=== PATIENT | male | born 1980 | race African-American/Black ===

== ENCOUNTER 2017-04-05 08:58 | Inpatient (IN) | payer BC ==
[~2017-04-05] VITALS: Ht 177.8 cm; Wt 79.9 kg
[2017-04-05 09:07] VITALS: Ht 177.8 cm; Wt 79.9 kg
[2017-04-05 10:13] LABS: BASOPHIL % 0.5 % (0-2)
[2017-04-05 10:30] LABS: PLATELET COUNT 118 x10^3mcL (130-400); RED CELL DISTRIBUTION WIDTH 15.1 % (11.5-14.5)
[2017-04-05 10:52] LABS: CALCIUM 8.6 mg/dL (8.5-10.1); CARBON DIOXIDE 31.8 mmol/L (21-32); CHLORIDE SERUM 104 mmol/L (98-107); CREATININE SERUM 0.9 mg/dL (0.7-1.3); GFR1 > 60 mL/min; GLUCOSE SERUM 104 mg/dL (74-106); SODIUM SERUM 141 mmol/L (136-145)
[2017-04-05 11:00] LABS: ALKALINE PHOSPHATASE 44 U/L (46-116); ALT/SGPT 32 U/L (16-63); AST/SGOT 27 U/L (15-37); CHOLESTEROL 159 mg/dL (<200); LIPASE 214 IU/L (73-393); TOTAL PROTEIN, SERUM 7.7 g/dL (6.4-8.2)
[2017-04-05 11:02] LABS: AMYLASE 140 U/L (25-115); HDL CHOLESTEROL 63 mg/dL (40-60)
[2017-04-05 11:59] LABS: microscopic required? NO
[2017-04-05 12:07] LABS: urine erythrocyte NEGATIVE (NEGATIVE)
[2017-04-05 12:27] LABS: AMPHETAMINE QUAL UR NONE DETECTED (NEG <=1000)
[2017-04-05 13:22] VITALS: BP 113/78
[2017-04-05 13:36] LABS: RED BLOOD CELLS 5.99 M/mm3 (4.52-5.90)
[2017-04-05 13:43] LABS: IRON 88 ug/dL (65-170); TOTAL IRON BINDING CAPACITY 327 ug/dL (250-450)
[2017-04-05 13:47] LABS: MAGNESIUM 2.1 mg/dL (1.8-2.4); T3 TOTAL 1.1 ng/mL
[2017-04-05 13:48] LABS: CHOLESTEROL/HDL RATIO 2.5
[2017-04-05 13:52] LABS: T4(THYROXINE) 8.9 ug/dL (4.7-13.3)
[2017-04-05 16:48] VITALS: BP 114/79
[2017-04-05 20:39] VITALS: BP 116/71
[2017-04-05 23:34] VITALS: BP 113/73
[2017-04-06 02:51] LABS: PLATELET COUNT 102 x10^3mcL (130-400); RED CELL DISTRIBUTION WIDTH 14.8 % (11.5-14.5)
[2017-04-06 02:52] LABS: CALCIUM 8.5 mg/dL (8.5-10.1); CARBON DIOXIDE 29.3 mmol/L (21-32); CHLORIDE SERUM 107 mmol/L (98-107); CREATININE SERUM 0.9 mg/dL (0.7-1.3); GFR1 > 60 mL/min; GLUCOSE SERUM 92 mg/dL (74-106); PHOSPHOROUS 3.5 mg/dL (2.5-4.9); SODIUM SERUM 142 mmol/L (136-145)
[2017-04-06 03:57] LABS: BAND NEUTROPHIL 4 % (0-10); MONOCYTE 10 % (0-7); SEGMENTED NEUTROPHILS 25 % (37-75); rbc morphology (normal/abnorm) NORMAL (NORMAL)
[2017-04-06 05:45] VITALS: BP 112/72
[2017-04-06 09:45] VITALS: BP 114/72
[2017-04-06] MEDS ORDERED: ASPIRIN ADULT L81 M5 PO (10:03)
[2017-04-06] MEDS ORDERED: BUSPIRONE HYDR7.5 MG PO (10:03)
[2017-04-06] MEDS ORDERED: ATORVASTATIN CA40 M1 PO (10:05)
[2017-04-06 10:19] VITALS: BP 114/70
== END 2017-04-06 13:20 | disposition home or self-care (01) | DRG 880 ==
LOC: ED 08:58 → DU 11:57
PROVIDERS: Emergency Medicine; Family Medicine
DX: F41.9 Anxiety disorder, unspecified (principal); G92 Toxic encephalopathy; F12.129 Cannabis abuse with intoxication, unspecified; D69.6 Thrombocytopenia, unspecified; M99.01 Segmental and somatic dysfunction of cervical region; I08.1 Rheumatic disorders of both mitral and tricuspid valves; E02 Subclinical iodine-deficiency hypothyroidism; R00.1 Bradycardia, unspecified; Z68.25 Body mass index [BMI] 25.0-25.9, adult; Z80.9 Family history of malignant neoplasm, unspecified; Z82.49 Family history of ischemic heart disease and other diseases of the circulatory system; Z87.891 Personal history of nicotine dependence; Z72.89 Other problems related to lifestyle
CPT/HCPCS: 83880; 84439; J2060; J7030; Q0092; Q9967